=== PATIENT | female | born 1970 | race Two or more races ===

== ENCOUNTER 2021-12-24 10:08 | Emergency (ER) | payer OTHER ==
[2021-12-24 10:31] VITALS: BP 125/80; PULSE 78; RESP 16; TEMP 98.9; BMI 25.6
[2021-12-24] MEDS ORDERED: diphenhydrAMINE HCL 25 MG CAPSULE (FP) PO ONE ×2 (12:17→12:19)
== END 2021-12-24 13:13 | disposition home or self-care (01) ==
LOC: JERFT 10:08 → JER 10:08 → JERFT 13:13
DX: L74.0 Miliaria rubra (principal)
CPT/HCPCS: 99283-25

== ENCOUNTER 2022-01-02 11:59 | Emergency (ER) | payer OTHER ==
[2022-01-02 12:20] VITALS: BP 128/84; PULSE 59; RESP 17; TEMP 97.9; BMI 26.9
[2022-01-02 15:44] LABS: HEMATOCRIT 41.5 % (32.4-45.2); HEMOGLOBIN 13.7 GM/dL (10.7-15.3); MCH 30.4 pg (25.7-33.7); MCHC 33.1 g/dl (32.0-36.0); MEAN CELL VOLUME 91.7 fl (80-96); MEAN PLT VOLUME 9.9 fl (7.5-11.1); PLATELET COUNT 420 10^3/uL (134-434); RBC 4.52 M/mm3 (3.60-5.2); RDW 15.6 % (11.6-15.6)
[2022-01-02 15:47] LABS: WHITE BLOOD COUNT 30.9 K/mm3 (4.0-10.0)
[2022-01-02 16:09] LABS: CALCIUM 9.4 mg/dL (8.5-10.1)
[2022-01-02 16:10] LABS: ALBUMIN 4.3 g/dl (3.4-5.0); BLOOD UREA NITROGEN 12.4 mg/dL (7-18)
[2022-01-02 16:13] LABS: CREATININE 0.7 mg/dL (0.55-1.3)
[2022-01-02 16:14] LABS: TOT PROT 7.7 g/dl (6.4-8.2)
[2022-01-02 16:15] LABS: BILIRUBIN,TOTAL 0.4 mg/dL (0.2-1)
[2022-01-02 17:06] LABS: PH,URINE 5.5 (5.0-8.0); URINE APPEARANCE CLEAR; URINE BILIRUBIN NEGATIVE (NEGATIVE); URINE COLOR YELLOW; URINE GLUCOSE (UA) NEGATIVE (NEGATIVE); URINE KETONE NEGATIVE (NEGATIVE); URINE LEUK ESTERASE NEGATIVE (NEGATIVE); URINE NITRITE NEGATIVE (NEGATIVE); URINE PROTEIN NEGATIVE (NEGATIVE); URINE UROBILINOGEN 0.2 mg/dL (0.2-1.0)
[2022-01-02 17:10] LABS: ANISOCYTOSIS 0; HELMET CELLS 0; HOWELL-JOLLY BODIES 0; MACROCYTOSIS 0; OVALOCYTE 0; ROULEAU 0; SICKELED CELLS 0; TARGET CELLS 0; TEAR DROP CELLS 0; TOXIC GRANULATION 0
== END 2022-01-02 18:11 | disposition home or self-care (01) ==
LOC: JER 11:59
DX: D72.829 Elevated white blood cell count, unspecified (principal)
CPT/HCPCS: 36415; 71046-TC-FY; 80053; 81003; 85025; 87040; 87086; 87186; 87807; 99284-25